=== PATIENT | female | born 1980 | race Caucasian/White ===

== ENCOUNTER 2019-12-18 10:00 | Emergency (ER) | payer SELFPAY ==
--- OUTSIDE RECORDS SUMMARY | 2019-12-18 10:02 | XMS REPORT | Continuity of Care Document ---
:[address] [facility] t Address [address] [place] [address] Care Team Providers Name Role Phone Unavailable Unavailable Unavailable Payers Payer Name Policy Type Policy Number Effective Date Expiration Date S ource Problems This patient has no known problems. Allergies, Adverse Reactions, Alerts Allergy Allergy Status Severity Reaction(s) Onset Inactive Treating Comm ents Source Name Type Date Date Clinician No Known DA Active U [facility]07 [facility] 00:00: d 00 [facility] No Known DA Active U [facility] 01-26 [facility] 00:00: d 00 [facility] No Known DA Active U 2014-05 [facility] - [facility] 00:00: d 00 [facility] Medications This patient has no known medications. Procedures This patient has no known procedures. Results Test Description Test Time Test Comments Results Result [facility] e Comments - CT MAXIFAC W/O 2019-05-15 FAX: CONTRAST 16:53:00 Caprice Baldwin NP [place]: St: REG Name: NALDO GRIFFITHS [facility] : 1980 Age/S: 38/F [address] Unit: [id number] Loc: [place] [address] Phys: Caprice Baldwin NP Acct: [id number] Dis Date: Status: REG ER PHONE #: [phone] Exam Date: 05/15/20191654 FAX #: [phone] Reason: tooth pain, right side facial swelling EXAMS: CPT CODE: [id number] CT MAXIFAC W/O CONTRAST 24352 Examination: CT scan facial bones without contrast. Location code: 60. TECHNIQUE: Multiple axial images of the facial bones were obtained without intravenous and demonstration of contrast with sagittal and coronal reconstructions. CT exam was performed using automated dose reduction. Discussion: Clinical history is significant for right sided facial swelling. There is diffuse subcutaneous soft tissue edema identified in the soft tissues adjacent to the right mandible and maxilla. Findings are consistent with a diffuse cellulitis. In addition asymmetric soft tissue structure is identified adjacent to the right maxilla measuring 2.7 cm x 1.2 cm. Given the asymmetry of the soft tissue findings likely represent phlegmonous change with an early abscess not excluded given the lack of intravenous contrast which limits the study. The underlying maxilla reveals no destructive change. There is a large mucus retention cyst identified in the left maxillary sinus which measures 2.7 cm x 1.9 cm. The remainder the paranasal sinuses are well aerated. Ostomy over units are patent. Nasal septum is midline. IMPRESSION: 1. Findings consistent with a phlegmon/early abscess adjacent to the right maxilla with subcutaneous edema/cellulitis as detailed above. 2. Large mucus retention cyst/polyp within the left maxillary sinus as detailed above. 3. No destructive changes are identified involving the right maxilla. at 1653 Reported and signed by: Onofre Cobian MD CC: Caprice Baldwin NP Technologist: PANKAJ VALLE Trnscrd Dt/Tm: 05/15/2019 (1653) [email or web address] Orig Print D/T: S: 05/15/2019 (3316 PAGE 1 Signed Report - XR CHEST 1 V 2019-01-26 FAX: N 09:34:00 Maxine Mendoza [phone] [place]: St: PRE Name: NALDO GRIFFITHS : 1980 Age/S: 38/F [address] Unit #: [id number] Loc: [place] [address] Phys: Maxine Mendoza NP Acct: [id number] Dis Date: Status: PRE ER PHONE #: [phone] Exam Date: 01/26/2019 09 FAX #: [phone] Reason: COUGH EXAMS: CPT CODE: [id number] XR CHEST 1 V 40397 EXAM: - XR CHEST 1 V Location code:C3 HISTORY: COUGH COMPARISON: None available time of interpretation. FINDINGS: Single AP view of the chest is provided. Heart size and vascularity are within normal limits. The lungs are clear of focal consolidation. No effusion, pneumothorax, or acute osseous abnormality. IMPRESSION: 1. No radiographic evidence of acute cardiopulmonary process. at 0934 Reported and signed by: Oscar Santillan MD CC: Maxine Mendoza NP Technologist: ROCÍO RODRIGUEZ RT (R) Trnscrd Date/Time/By: 01/26/2019 (0934) : By: [email or web address] PAGE 1 Signed Report FAX: Maxine Edouard [phone] [place]: St: PRE Name: NALDO GRIFFITHS : 1980 Age/S: 38/F [address] Unit #: [id number] Loc: [place] [address] Phys: Maxine Mendoza NP Acct: [id number] Dis Date: Status: PRE ER PHONE #: [phone] Exam Date: 01/26/2019930 FAX #: [phone] Reason: COUGH EXAMS: CPT CODE: [id number] XR CHEST 1 V 39329 <Continued> Orig Print D/T: S: 01/26/2019 (0937) PAGE 2 Signed Report
--- NOTE | 2019-12-18 10:54 | EDPHYS ---
Physician Documentation [facility] Name: Maurice Senior Age: 38 yrs Sex: Female : 1980 Arrival Date: 12/18/2019 Time: 10:03 Bed 5 Private MD: ED Physician Brian Easton HPI: 12/17 10:47 This 38 yrs old Female presents to ER via Ambulatory with complaints of Elbow allan Swelling. 10:47 The patient or guardian complains of pain, that is acute, swelling, DRY SKIN. The allan complaints affect the right elbow. Context: The problem was sustained at home, at an unknown location. Onset: The symptoms/episode began/occurred 3 day(s) ago. Treatment prior to arrival includes: no previous treatment. Modifying factors: The symptoms are alleviated by remaining still, the symptoms are aggravated by movement, bending arm. Associated signs and symptoms: The patient has no apparent associated signs or symptoms. Severity of symptoms: At their worst the symptoms were mild, in the emergency department the symptoms are unchanged. The patient has not experienced similar symptoms in the past. 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 - Social history:: Smoking status: Patient reports the use of cigarette tobacco products, smokes one-half pack cigarettes per day. - Family history:: not pertinent. ROS: 10:47 Constitutional: Negative for fever, chills, and weight loss, Eyes: Negative for injury, allan pain, redness, and discharge, ENT: Negative for injury, pain, and discharge, Neck: Negative for injury, pain, and swelling, Cardiovascular: Negative for chest pain, palpitations, and edema, Respiratory: Negative for shortness of breath, cough, wheezing, and pleuritic chest pain, Abdomen/GI: Negative for abdominal pain, nausea, vomiting, diarrhea, and constipation, Back: Negative for injury and pain, : Negative for injury, bleeding, discharge, and swelling, Skin: Negative for injury, rash, and discoloration, Neuro: Negative for headache, weakness, numbness, tingling, and seizure, Psych: Negative for depression, anxiety, suicide ideation, homicidal ideation, and hallucinations, Allergy/Immunology: Negative for hives, rash, and allergies, Endocrine: Negative for neck swelling, polydipsia, polyuria, polyphagia, and marked weight changes, Hematologic/Lymphatic: Negative for swollen nodes, abnormal bleeding, and unusual bruising. 10:47 MS/extremity: Positive for pain, swelling, tenderness, of the right elbow. Exam: 10:47 Constitutional: This is a well developed, well nourished patient who is awake, alert, allan and in no acute distress. Head/Face: Normocephalic, atraumatic. Eyes: Pupils equal round and reactive to light, extra-ocular motions intact. Lids and lashes normal. Conjunctiva and sclera are non-icteric and not injected. Cornea within normal limits. Periorbital areas with no swelling, redness, or edema. ENT: Nares patent. No nasal discharge, no septal abnormalities noted. Tympanic membranes are normal and external auditory canals are clear. Oropharynx with no redness, swelling, or masses, exudates, or evidence of obstruction, uvula midline. Mucous membranes moist. Neck: Trachea midline, no thyromegaly or masses palpated, and no cervical lymphadenopathy. Supple, full range of motion without nuchal rigidity, or vertebral point tenderness. No Meningismus. Chest/axilla: Normal chest wall appearance and motion. Nontender with no deformity. No lesions are appreciated. Cardiovascular: Regular rate and rhythm with a normal S1 and S2. No gallops, murmurs, or rubs. Normal PMI, no JVD. No pulse deficits. Respiratory: Lungs have equal breath sounds bilaterally, clear to auscultation and percussion. No rales, rhonchi or wheezes noted. No increased work of breathing, no retractions or nasal flaring. Abdomen/GI: Soft, non-tender, with normal bowel sounds. No distension or tympany. No guarding or rebound. No evidence of tenderness throughout. Back: No spinal tenderness. No costovertebral tenderness. Full range of motion. Skin: Warm, dry with normal turgor. Normal color with no rashes, no lesions, and no evidence of cellulitis. Neuro: Awake and alert, GCS 15, oriented to person, place, time, and situation. Cranial nerves II-XII grossly intact. Motor strength 5/5 in all extremities. Sensory grossly intact. Cerebellar exam normal. Normal gait. Psych: Awake, alert, with orientation to person, place and time. Behavior, mood, and affect are within normal limits. 10:47 Musculoskeletal/extremity: ROM: full active range of motion, full passive range of motion, Circulation is intact in all extremities. Sensation intact. Compartment Syndrome exam of affected extremity: is normal. Joints: All joints appear normal with full range of motion. Tendon exam: specific tendon testing normal through active and passive range of motion Vital Signs: 10:32 BP 113 / 87; Pulse 86; Resp 16; Temp 98.3(TE); Pulse Ox 99% on R/A; Weight 58.97 kg; hb Height 5 ft. (152.40 cm); Pain 8/10; 10:32 Body Mass Index 25.39 (58.97 kg, 152.40 cm) hb MDM: 10:30 Patient medically screened. allan 10:50 Differential diagnosis: abrasion, tendonitis. Data reviewed: vital signs, nurses notes. allan Data interpreted: monitor car operator: not applicable for this patient encounter. rate is 86 beats/min, rhythm is regular. Test interpretation: by ED physician or midlevel provider:. Counseling: I had a detailed discussion with the patient and/or guardian regarding: the historical points, exam findings, and any diagnostic results supporting the discharge/admit diagnosis, the need for outpatient follow up, for definitive care, a family practitioner. ED course: MILD INFLAMMATORY BURSITIS. 12/17 10:46 Order name: Ice pack; Complete Time: 10:52 allan Administered Medications: 10:57 Drug: Motrin 600 mg Route: PO; hb 11:30 Follow up: Response: No adverse reaction hb 10:57 Drug: Neosporin Ointment 1 application Route: Topical; Site: affected area; hb 11:30 Follow up: Response: No adverse reaction hb 10:57 Drug: Bactrim (160 mg-800 mg (DS) 1 tablet Route: PO; hb 11:30 Follow up: Response: No adverse reaction hb Disposition: 12/18/19 10:54 Discharged to Home. Impression: Cellulitis and acute lymphangitis of other parts of limb - olecranon bursitis, inflamatory. - Condition is Stable. - Discharge Instructions: Cellulitis, Adult, [id number]. - Prescriptions for Bactroban 2 % Topical Ointment - Apply to affected area 1 application by TOPICAL route every 12 hours; 15 gram. Ibuprofen 600 mg Oral Tablet - take 1 tablet by ORAL route every 8 hours As needed take with food; 21 tablet. Bactrim DS 800- 160 mg Oral Tablet - take 1 tablet by ORAL route every 12 hours for 10 days; 20 tablet. - Medication Reconciliation Form, Thank You Letter, Antibiotic Education, Prescription Opioid Use form. - Follow up: Private Physician; When: 2 - 3 days; Reason: Recheck today's complaints, Continuance of care, Re-evaluation by your physician. - Problem is new. - Symptoms have improved. Signatures: Brian Easton MD MD cha Baxter, Heather RN RN hb Corrections: (The following items were deleted from the chart) 11:32 10:54 12/18/2019 10:54 Discharged to Home. Impression: Cellulitis and acute hb lymphangitis of other parts of limb - olecranon bursitis, inflamatory. Condition is Stable. Forms are Medication Reconciliation Form, Thank You Letter, Antibiotic Education, Prescription Opioid Use. Follow up: Private Physician; When: 2 - 3 days; Reason: Recheck today's complaints, Continuance of care, Re-evaluation by your physician. Problem is new. Symptoms have improved. allan
--- NOTE | 2019-12-18 10:54 | ER ---
Nurse's Notes [facility] Name: Maurice Senior Age: 38 yrs Sex: Female : 1980 Arrival Date: 12/18/2019 Time: 10:03 Bed 5 Private MD: Diagnosis: Cellulitis and acute lymphangitis of other parts of limb-olecranon bursitis, inflamatory Presentation: 12/17 10:32 Chief complaint: Left elbow pain, swelling, and redness x 2 days. Elbow is hot to hb touch. Denies injury, had blood drawn from LAC yesterday. Coronavirus screen: At this time, the client does not indicate any symptoms associated with coronavirus-19. Ebola Screen: No symptoms or risks identified at this time. Initial Sepsis Screen: Does the patient meet any 2 criteria? No. Patient's initial sepsis screen is negative. Does the patient have a suspected source of infection? No. Patient's initial sepsis screen is negative. Risk Assessment: Do you want to hurt yourself or someone else? Patient reports no desire to harm self or others. Onset of symptoms was December 17, 2019. 10:32 Method Of Arrival: Ambulatory hb 10:32 Acuity: WILLIS 4 hb Triage Assessment: 10:36 General: Appears in no apparent distress. Behavior is calm, cooperative. Pain: Pain hb currently is 8 out of 10 on a pain scale. EENT: No signs and/or symptoms were reported regarding the EENT system. Neuro: Level of Consciousness is awake, alert, obeys commands, Oriented to person, place, time, situation. Cardiovascular: Capillary refill < 3 seconds Patient's skin is warm and dry. Respiratory: Respiratory effort is even, unlabored, Respiratory pattern is regular, symmetrical. GI: No signs and/or symptoms were reported involving the gastrointestinal system. : No signs and/or symptoms were reported regarding the genitourinary system. Derm: Skin is pink, warm \T\ dry. Musculoskeletal: redness and mild swelling noted to right elbow, hot to touch. 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 - Social history:: Smoking status: Patient reports the use of cigarette tobacco products, smokes one-half pack cigarettes per day. - Family history:: not pertinent. Screenin:37 Abuse screen: Denies threats or abuse. Denies injuries from another. Nutritional hb screening: No deficits noted. Tuberculosis screening: No symptoms or risk factors identified. Fall Risk None identified. Assessment: 11:00 General: SEE TRIAGE. hb Vital Signs: 10:32 BP 113 / 87; Pulse 86; Resp 16; Temp 98.3(TE); Pulse Ox 99% on R/A; Weight 58.97 kg; hb Height 5 ft. (152.40 cm); Pain 8/10; 10:32 Body Mass Index 25.39 (58.97 kg, 152.40 cm) hb ED Course: 10:03 Patient arrived in ED. mr 10:06 Brian Easton MD is Attending Physician. [facility] 10:27 Naomie Carpenter, RN is Primary Nurse. hb 10:33 Triage completed. hb 10:36 Arm band placed on. hb 10:37 Patient has correct armband on for positive identification. Bed in low position. Call hb light in reach. 11:30 No provider procedures requiring assistance completed. Patient did not have IV access hb during this emergency room visit. Administered Medications: 10:57 Drug: Motrin 600 mg Route: PO; hb 11:30 Follow up: Response: No adverse reaction hb 10:57 Drug: Neosporin Ointment 1 application Route: Topical; Site: affected area; hb 11:30 Follow up: Response: No adverse reaction hb 10:57 Drug: Bactrim (160 mg-800 mg (DS) 1 tablet Route: PO; hb 11:30 Follow up: Response: No adverse reaction hb Outcome: 10:54 Discharge ordered by . allan 11:30 Discharged to home ambulatory. hb 11:30 Condition: stable 11:30 Discharge instructions given to patient, Instructed on discharge instructions, follow up and referral plans. medication usage, Demonstrated understanding of instructions, follow-up care, medications, Prescriptions given X 3. 11:32 Patient left the ED. hb Signatures: Brian Easton MD MD cha Rivera, Mary mr Naomie Carpenter, RN RN hb Corrections: (The following items were deleted from the chart) 10:52 10:32 Acuity: WILLIS 3 hb hb
[2019-12-18] MEDS ORDERED: SMZ./TMP. 800/160 MG TABLET ONE (11:06)
[2019-12-18] MEDS ORDERED: IBUPROFEN 200 MG TAB PO ONE (11:06)
[2019-12-18 11:38] VITALS: BP 113/87; TEMP 98.3; O2SAT 99
== END 2019-12-18 11:32 | disposition home or self-care (01) ==
LOC: ER 10:00
DX: L03.113 Cellulitis of right upper limb (principal); L03.123 Acute lymphangitis of right upper limb; M70.21 Olecranon bursitis, right elbow; F17.210 Nicotine dependence, cigarettes, uncomplicated; F32.9 Major depressive disorder, single episode, unspecified
CPT/HCPCS: 99283